=== PATIENT | male | born 1970 | race African-American/Black ===

== ENCOUNTER 2016-08-10 22:11 | Emergency (ER) | payer SELFPAY ==
[2016-08-10] MEDS ORDERED: CYCLOBENZAPRINE 10 MG TAB ONE (22:58)
[2016-08-10] MEDS ORDERED: KETOROLAC 30 MG/ML VIAL ONE (22:58)
== END 2016-08-10 23:54 | disposition home or self-care (01) ==
LOC: ER 22:11
DX: R10.9 Unspecified abdominal pain (principal); J45.909 Unspecified asthma, uncomplicated; F17.290 Nicotine dependence, other tobacco product, uncomplicated
CPT/HCPCS: 36415; 80053; 81003; 83690; 85025; 96374